=== PATIENT | female | born 1980 | race Caucasian/White ===

== ENCOUNTER → 2019-11-10 | Emergency (ER) | payer OTHER ==
[~2019-11-10] VITALS: Ht 162.6 cm; Wt 86.2 kg
[~2019-11-10] MED LIST: LABETALOL 20 MG/4 ML VIAL IV ONE; LABETALOL HCL IV 100MG VIAL ONE; NIFEdipine XL (30MG) 30 MG TAB PO STA
--- NOTE | 2019-11-10 14:00 | NUR ---
A/Ox4, c/o above right knee pain. To ER #3.
--- NOTE | 2019-11-10 16:00 | NUR ---
Labetalol given as ordered for SBP 200, per patient, haven't taking BP meds as prescribed about 3 months already.
--- NOTE | 2019-11-10 16:30 | NUR ---
SBP still 180's, given another Labetalol
--- NOTE | 2019-11-10 16:35 | NUR ---
LE venous studies, neg for DVT, patient made aware
--- NOTE | 2019-11-10 16:40 | NUR ---
SBP 130's, made aware.
--- NOTE | 2019-11-10 18:10 | NUR ---
Patient discharged to home in stable condition. Written and verbal after care instructions given. Patient verbalizes understanding of instruction.IV removed. Catheter intact and site benign. Pressure and 4x4 applied to site. No bleeding noted.
[2019-11-10 18:11] VITALS: BP 154/87
== END | disposition home or self-care (01) ==
LOC: ER 13:55
DX: M79.661 Pain in right lower leg (principal); I10 Essential (primary) hypertension; F17.200 Nicotine dependence, unspecified, uncomplicated; Z90.49 Acquired absence of other specified parts of digestive tract; Z60.2 Problems related to living alone
CPT/HCPCS: 93971; 96374; 99284; J3490 ×3